=== PATIENT | female | born 1970 | race American Indian/Alaskan Native ===

== ENCOUNTER 2019-01-06 20:49 | Emergency (ER) | payer OTHER ==
--- NOTE | 2019-01-06 21:18 | Emergency Department Report ---
Chief Complaint: Abdominal Pain Stated Complaint: LEFT FLANK PAIN/VOMITING Time Seen by Provider: 01/06/19 21:14 - HPI History of Present Illness: This is a 48 y.o. F. that presents to the ER with left flank pain, dysuria, n/v for 2 days. - Exam Vital Signs: Vital Signs 01/06/19 21:14 Temperature 99.0 F Pulse Rate 86 Respiratory 18 Rate Blood Pressure 116/84 O2 Sat by Pulse 100 Oximetry MSE screening note: Focused history and physical exam performed. Due to findings the following was ordered: labs ED Disposition for MSE Condition: Stable Instructions: Abdominal Pain (ED)
[2019-01-06 21:52] LABS: Basophils % (Auto) 0.3 % (0.0-1.8); Eosinophils # (Auto) 0.1 K/mm3 (0.0-0.4); Eosinophils % (Auto) 0.8 % (0.0-4.3); Hematocrit 36.5 % (30.3-42.9); Hemoglobin 12.5 gm/dl (10.1-14.3); Lymphocytes # (Auto) 1.7 K/mm3 (1.2-5.4); Lymphocytes % (Auto) 18.7 % (13.4-35.0); Mean Corpuscular HGB Conc 34 % (30-34); Mean Corpuscular Volume 96 fl (79-97); Monocytes # (Auto) 0.5 K/mm3 (0.0-0.8); Monocytes % (Auto) 5.5 % (0.0-7.3); Platelet Count 269 K/mm3 (140-440); Red Cell Distribution Width 12.4 % (13.2-15.2)
[2019-01-06 22:07] LABS: BUN/Creatinine Ratio 13; Blood Urea Nitrogen 10 mg/dL (7-17); Calcium 9.7 mg/dL (8.4-10.2); Hemolysis Index 1
[2019-01-06 22:10] LABS: Bilirubin,Urine NEG (Negative); Blood,Urine MOD (Negative); Color,Urine Colorless (Yellow); Protein,Urine <15 mg/dL mg/dL (Negative); Urobilinogen,Urine < 2.0 mg/dL (<2.0)
[2019-01-06] MEDS ORDERED: NACL 0.9% 1000 ML 1,000 ML IV ONE (22:54)
[2019-01-06] MEDS ORDERED: MORPHINE IV ONE (22:54)
[2019-01-06] MEDS ORDERED: ROCEPHIN/NS 1 GM/50 ML 1 GM/50 ML BAG IV ONE (22:54)
[2019-01-06] MEDS ORDERED: ZOFRAN IV ONE (22:54)
--- NOTE | 2019-01-06 22:58 | Emergency Department Report ---
ED Abdominal Pain HPI - General Chief Complaint: Abdominal Pain Stated Complaint: LEFT FLANK PAIN/VOMITING Time Seen by Provider: 01/06/19 21:14 Source: patient Mode of arrival: Ambulatory Limitations: No Limitations - History of Present Illness Initial Comments: Patient is 48 years old female in no significant past medical history except for remote history of kidney stone. Patient presented to the ER complaining of left flank pain started all of a sudden this afternoon associated his nausea and vomiting. Patient also stated that she noticed increased urinary frequency and dysuria but no hematuria. Patient denied any fever or chills. No chest pain or shortness of breath. MD Complaint: abdominal pain, flank pain -: This afternoon Location: L flank Radiation: none Migration to: no migration Severity: moderate Severity scale (0 -10): 7 Quality: sharp Consistency: constant - Related Data Previous Rx's Medication Instructions Recorded Last Taken Type Meloxicam [Mobic] 7.5 mg PO Q12H #30 tablet 09/30/13 Unknown Rx Prednisone [Prednisone 10 mg 10 mg PO .TAPER #1 tab.ds.pk 09/30/13 Unknown Rx (6-Day Pack, 21 Tabs)] traMADol [Ultram 50 MG tab] 50 mg PO Q6HR PRN #20 tablet 09/30/13 Unknown Rx Allergies Allergy/AdvReac Type Severity Reaction Status Date / Time No Known Allergies Allergy Verified 09/30/13 13:00 ED Review of Systems ROS: Stated complaint: LEFT FLANK PAIN/VOMITING Other details as noted in HPI Comment: All other systems reviewed and negative Constitutional: denies: chills, fever Respiratory: denies: cough, orthopnea, shortness of breath, SOB with exertion, SOB at rest, wheezing Cardiovascular: denies: chest pain, palpitations, dyspnea on exertion Gastrointestinal: abdominal pain, nausea, vomiting. denies: diarrhea, constipation, hematemesis, melena, hematochezia Genitourinary: urgency, dysuria, frequency Musculoskeletal: back pain Neurological: denies: headache, weakness, numbness, paresthesias, confusion, abnormal gait ED Past Medical Hx - Past Medical History Previous Medical History?: Yes Hx Kidney Stones: Yes - Surgical History Past Surgical History?: Yes Additional Surgical History: tubal - Social History Smoking Status: Never Smoker Substance Use Type: Alcohol - Medications Home Medications: Home Medications Medication Instructions Recorded Confirmed Last Taken Type Meloxicam [Mobic] 7.5 mg PO Q12H #30 tablet 09/30/13 Unknown Rx Prednisone [Prednisone 10 mg 10 mg PO .TAPER #1 tab.ds.pk 09/30/13 Unknown Rx (6-Day Pack, 21 Tabs)] traMADol [Ultram 50 MG tab] 50 mg PO Q6HR PRN #20 tablet 09/30/13 Unknown Rx ED Physical Exam - General Limitations: No Limitations General appearance: alert, in no apparent distress - Head Head exam: Present: atraumatic, normocephalic, normal inspection - Eye Eye exam: Present: normal appearance - ENT ENT exam: Present: normal exam, normal orophraynx, mucous membranes moist - Neck Neck exam: Present: normal inspection, full ROM. Absent: tenderness, meningismus, lymphadenopathy, thyromegaly - Respiratory Respiratory exam: Present: normal lung sounds bilaterally - Cardiovascular Cardiovascular Exam: Present: regular rate, normal rhythm, normal heart sounds - GI/Abdominal GI/Abdominal exam: Present: soft, normal bowel sounds. Absent: distended, tenderness, guarding, rebound, rigid, organomegaly, mass, bruit, pulsatile mass, hernia - Extremities Exam Extremities exam: Present: normal inspection, full ROM, normal capillary refill - Back Exam Back exam: Present: normal inspection, full ROM, CVA tenderness (L). Absent: CVA tenderness (R), muscle spasm, paraspinal tenderness, vertebral tenderness - Neurological Exam Neurological exam: Present: alert, oriented X3, CN II-XII intact, normal gait, reflexes normal - Skin Skin exam: Present: warm, intact, normal color ED Course Vital Signs 01/06/19 01/06/19 01/06/19 21:14 22:57 23:10 Temperature 99.0 F 97.2 F L Pulse Rate 86 76 Respiratory 18 13 16 Rate Blood Pressure 116/84 Blood Pressure 143/92 [Right] O2 Sat by Pulse 100 99 Oximetry 01/06/19 23:40 Temperature Pulse Rate Respiratory 16 Rate Blood Pressure Blood Pressure [Right] O2 Sat by Pulse Oximetry ED Medical Decision Making - Lab Data Result diagrams: 01/06/19 21:41 01/06/19 21:41 - Radiology Data Radiology results: report reviewed - Medical Decision Making Patient is 48 years old female in no significant past medical history except for remote history of kidney stone. Patient presented to the ER complaining of left flank pain started all of a sudden this afternoon associated his nausea and vomiting. Patient also stated that she noticed increased urinary frequency and dysuria but no hematuria. Patient denied any fever or chills. No chest pain or shortness of breath. CT abdomen and pelvis is negative for acute intra-abdominal pathology. Labs reviewed and showed a UTI. Patient received Rocephin IV in the emergency room. I will discharge patient on ciprofloxacin 500 mg twice a day for 7 days and advised to follow-up with her primary care physician in the next 2-3 days and to return to the ER if symptoms have not improved Critical care attestation.: If time is entered above; I have spent that time in minutes in the direct care of this critically ill patient, excluding procedure time. ED Disposition Clinical Impression: Abdominal pain, UTI (urinary tract infection) Disposition: TO HOME OR SELFCARE Is pt being admited?: No Condition: Stable Instructions: Abdominal Pain (ED), Urinary Tract Infection in Women (ED) Referrals: CORNELL WEEMS MD [Primary Care Provider] - 3-5 Days
--- NOTE | 2019-01-07 01:23 | Cat Scan Report ---
PROCEDURE: CT ABDOMEN PELVIS W CON TECHNIQUE: Computerized axial tomography of the abdomen and pelvis was performed after the IV inject ion of iodinated nonionic contrast. CT DOSE LENGTH PRODUCT: mGycm HISTORY: abdominal pain/ left flank pain COMPARISONS: None . FINDINGS: Visualized lower thorax: No significant abnormality. Liver: Normal size and attenuation. Spleen: Normal size and attenuation. Gallbladder and biliary system: Normal. Pancreas: Normal. Adrenals: Normal. Kidneys: The kidneys enhance normally. There is no evidence renal stones or hydronephrosis.. GI tract: The bowel loops are normal in caliber and course. The appendix is not enlarged. . Lymph nodes and mesentery: Normal. Vasculature: Normal.. Bladder: Normal. Reproductive organs: Normal. Peritoneum: No free fluid. Musculoskeletal structures: No significant abnormality. Other: None . IMPRESSION: No acute process in the abdomen and pelvis. This document is electronically signed by Franki Hernandez MD., Jan 07 2019 01:20:26 AM ET
[2019-01-07 02:17] VITALS: BP 120/74
== END 2019-01-07 02:17 | disposition home or self-care (01) ==
LOC: ED 20:49
DX: N39.0 Urinary tract infection, site not specified (principal)
CPT/HCPCS: 36415; 74177; 80048; 81001; 85025; 96365; 99284; J0696; J2270; J2405; J7030; Q9967